=== PATIENT | male | born 1970 | race Caucasian/White ===

== ENCOUNTER 2022-01-09 15:30 | Emergency (ER) | payer OTHER ==
[2022-01-09 17:48] LABS: ALBUMIN 4.1 g/dL (3.4-5.0); ALKALINE PHOSHATASE 59 U/L (46-116); ALT 43 U/L (16-63); AST 34 U/L (15-37); BILIRUBIN - TOTAL 1.2 mg/dL (0.2-1.0); BUN 11 mg/dL (7-18); BUN/CREAT RATIO (CALC) 12.6 RATIO; CHLORIDE 103 mmol/L (98-107); CO2 (BICARBONATE) 29 mmol/L (21-32); CREATININE 0.87 mg/dL (0.67-1.17); GLOBULIN (CALCULATION) 3.8 g/dL; GLUCOSE 103 mg/dL (74-106); POTASSIUM 3.9 mmol/L (3.5-5.1); TOTAL PROTEIN 7.9 g/dL (6.4-8.2)
[2022-01-09 18:56] LABS: BASOPHIL 0.4 % (0-2); EOSINOPHIL 0.1 % (0-5); HCT 44.5 % (42.0-52.0); HGB 14.8 g/dl (13.2-18.0); LYMPHOCYTE 8.3 % (15-48); MCH 27.5 pg (25.0-31.0); MCHC 33.3 g/dL (32.0-36.0); MCV 82.6 fL (78.0-100.0); MONOCYTE 6.1 % (0-12); MPV 10.1 fL (6.0-9.5); NEUTROPHIL 84.7 % (41-80); NRBC 0; PLT 275 K/uL (150-400); RBC 5.39 M/uL (4.70-6.00); RDW 13.8 % (11.5-14.0)
== END 2022-01-09 21:48 | disposition other institution (70) ==
LOC: FER 15:30
PROVIDERS: Emergency Medicine
DX: S02.40FA Zygomatic fracture, left side, initial encounter for closed fracture (principal); R55 Syncope and collapse; R07.89 Other chest pain; Z88.5 Allergy status to narcotic agent; Z28.310 Unvaccinated for COVID-19; W19.XXXA Unspecified fall, initial encounter
CPT/HCPCS: 36415; 70450; 70486; 71045; 71260; 72125; 72170; 80053; 84484; 85025; 93005; 96361; 96374; 96375; 96376; G0480; J2270; J2405; J7030; Q9967